=== PATIENT | male | born 1960 ===

== ENCOUNTER 2018-03-25 21:26 | Emergency (ER) | payer BC ==
--- NOTE | 2018-03-25 21:29 | C.PDOC ---
History Of Present Illness 57 year old male presents to the emergency department complaining of shortness of breath. Patient reports that he has been drinking all day. Speaking in 2-3 word sentences. No f/c/n/v. No chest pain or palpitations Time Seen by Provider: 03/25/18 21:28 History Per: Patient History/Exam Limitations: no limitations Onset/Duration Of Symptoms: Hrs Current Symptoms Are (Timing): Still Present Initiating Event: Other Quality: Other (shortness of breath) Exacerbating Factor(s): Coughing Current Respiratory Medications: See Home Med List Severity: Severe Pain Scale Rating Of: 7 Associated Symptoms: denies: Fever, Chills, Productive Cough Recent travel outside of the [place]: No Past Medical History Reviewed: Historical Data, Nursing Documentation, Vital Signs Vital Signs: Last Vital Signs Temp 98.1 F 03/26/18 03:03 Pulse 98 H 03/26/18 03:03 Resp 16 03/26/18 03:03 BP 111/74 03/26/18 03:03 Pulse Ox 94 L 03/26/18 03:03 - Medical History PMH: No Chronic Diseases Surgical History: No Surg Hx Family History: States: No Known Family Hx - Social History Hx Alcohol Use: Yes Review Of Systems Constitutional: Negative for: Fever, Chills Cardiovascular: Negative for: Chest Pain Respiratory: Positive for: Shortness of Breath, Wheezing Gastrointestinal: Negative for: Nausea, Vomiting, Abdominal Pain Genitourinary: Negative for: Dysuria Musculoskeletal: Negative for: Back Pain Skin: Negative for: Rash Neurological: Negative for: Weakness Psych: Positive for: Anxiety Physical Exam - Physical Exam Appears: In Acute Distress Skin: Warm, Dry Head: Normacephalic Eye(s): bilateral: Normal Inspection Oral Mucosa: Moist Throat: No Erythema, No Exudate Neck: Trachea Midline, Supple Chest: Symmetrical, No Tenderness Cardiovascular: Rhythm Regular, No Murmur Respiratory: Decreased Breath Sounds, No Rales, Rhonchi (few at bases), Wheezing (bilateral) Gastrointestinal/Abdominal: Soft, No Tenderness, No Guarding, No Rebound Back: Normal Inspection Extremity: No Tenderness Extremity: Bilateral: Atraumatic Pulses: Left Dorsalis Pedis: Normal, Right Dorsalis Pedis: Normal Neurological/Psych: Oriented x3, Normal Speech, Normal Cognition Gait: Unsteady ED Course And Treatment - Laboratory Results Result Diagrams: 03/25/18 21:39 03/25/18 21:39 ECG: Interpreted By Me, Viewed By Me ECG Rhythm: Sinus Rhythm (101), Nonspecific Changes O2 Sat by Pulse Oximetry: 94 Pulse Ox Interpretation: Normal - Radiology CXR: Interpreted by Me, Viewed By Me CXR Interpretation: Yes: Other (fibrotic changes). No: Infiltrates, Fracture, Pnemothorax - CT Scan/US Chest Other Rad Studies (CT/US): Read By Radiologist, Radiology Report Reviewed CT/US Interpretation: IMPRESSION: Bilateral upper lobe infiltrates. Moderate bilateral cystic bronchiectasis. Moderate emphysema. Fatty liver. Right upper lobe and right middle lobe subsegmental atelectasis. Progress Note: Plan: ABG. EKG. CMP. Drug Screen. Magnesium. CBC. CXR One View. Duoneb 3ml IH. Solu-Medrol 125mg IVP. NaCl IV Fluids. Nebulizer Treatment. Urinalysis Reevaluation Time: 04:39 Reassessment Condition: Improved Critical Care Time - Critical Care Note Total Time (in mins): 30 Documented critical care: time excludes all time spent performing seperately billable procedures. Disposition Doctor Will See Patient In The: ED Counseled Patient/Family Regarding: Studies Performed, Diagnosis, Need For Followup, Rx Given - Disposition Referrals: [facility] [Outside] [facility] [Outside] Disposition: HOME/ ROUTINE Disposition Time: 21:29 Condition: FAIR Additional Instructions: Please return if symptoms recur Prescriptions: Albuterol HFA [Ventolin HFA 90 mcg/actuation (8 g)] 2 puff IH [id number] #1 puff Azithromycin [Zithromax Tri-Eyal] 500 mg PO DAILY #3 tablet Prednisone [Deltasone] 20 mg PO DAILY #5 tablet Instructions: Exacerbation of COPD (DC), Alcohol Abuse and Alcoholism (DC) Print Language: GABONESE - Clinical Impression Clinical Impression: COPD with exacerbation, Alcohol intoxication - Scribe Statement The provider has reviewed the documentation as recorded by the Scribe (Delfino Allen) Provider Attestation: All medical record entries made by the Scribe were at my direction and personally dictated by me. I have reviewed the chart and agree that the record accurately reflects my personal performance of the history, physical exam, medical decision making, and the department course for this patient. I have also personally directed, reviewed, and agree with the discharge instructions and disposition.
[2018-03-25] MEDS ORDERED: Sodium Chloride 0.9% 1,000 ML IV ONE (21:33)
[2018-03-25 21:44] LABS: BASO % 0.2 % (0.0-2.0); EOS # 0.2 K/uL (0.0-0.7); EOS % 2.8 % (0.0-4.0); HEMOGLOBIN 15.7 g/dL (12.0-18.0); LYMPH # 1.9 K/uL (1.0-4.3); LYMPH % 32.2 % (20.0-40.0); MEAN CELL VOLUME 96.4 fL (80.0-94.0); MEAN CORPUSCULAR HEMOGLOBIN 32.4 pg (27.0-31.0); MEAN CORPUSCULAR HGB CONC 33.7 g/dL (33.0-37.0); MEAN PLATELET VOLUME 7.2 fL (7.2-11.7); MONO # 0.9 K/uL (0.0-0.8); MONO % 15.2 % (0.0-10.0); NEUT # 2.9 K/uL (1.8-7.0); NEUT % 49.6 % (50.0-75.0); NRBC % 0.5 % (0.0-2.0); RBC 4.85 Mil/uL (4.40-5.90); RED CELL DISTRIBUTION WIDTH 20.5 % (11.5-14.5); WHITE BLOOD COUNT 5.8 K/uL (4.8-10.8)
[2018-03-25] MEDS ORDERED: Albuterol-Ipratrop 3 mg / 0.5 (3 ml) UD ONE (21:52)
[2018-03-25] MEDS ORDERED: Sodium Chloride 0.9% 1,000 ML ONE (21:53)
[2018-03-25 21:56] LABS: ALB/GLOB RATIO 1.1 (1.0-2.1); ALBUMIN 4.2 g/dL (3.5-5.0); ALT/SGPT 64 U/L (21-72); AST/SGOT 86 U/L (17-59); BLOOD UREA NITROGEN 6 mg/dL (9-20); CALCIUM 8.4 mg/dl (8.6-10.4); GFR AFRICAN-AMERICAN > 60; GFR NON-AFRICAN AMERICAN > 60
[2018-03-25 22:08] LABS: ABG ALLEN TEST P; ARTERIAL BLOOD GAS HCO3 28.5 mmol/L (21-28); ARTERIAL BLOOD GAS O2 SAT 99.1 % (95-98); ARTERIAL BLOOD GAS PCO2 54 mm/Hg (35-45); ARTERIAL BLOOD GAS PH 7.37 (7.35-7.45); ARTERIAL BLOOD GAS PO2 128 mm/Hg (80-100); ARTERIAL BLOOD GAS TCO2 32.9 mmol/L (22-28)
[2018-03-25] MEDS: Albuterol-Ipratrop 3 mg / 0.5 (3 ml) UD IH SCH (22:09)
[2018-03-25] MEDS ORDERED: Piperacillin/Tazobact 3.375 GM in Sodium Chloride 100 ML IVPB STA (23:10)
[2018-03-25 23:40] LABS: URINE BILIRUBIN NEGATIVE (NEGATIVE); URINE BLOOD NEGATIVE (NEGATIVE); URINE CLARITY Clear (Clear); URINE COLOR Yellow (YELLOW); URINE GLUCOSE (UA) NORMAL (Normal); URINE LEUKOCYTE ESTERASE NEG Leu/uL (Negative); URINE PROTEIN NEGATIVE (NEGATIVE); URINE UROBILINOGEN NORMAL mg/dL (0.2-1.0)
[2018-03-25] MEDS ORDERED: Piperacillin/Tazobact 3.375 gm 100 ML IVPB ONE (23:45)
[2018-03-25 23:53] LABS: BARBITURATES, UR NEGATIVE (NEGATIVE); BENZODIAZEPINES, UR NEGATIVE (NEGATIVE); OPIATES, UR NEGATIVE (NEGATIVE); PHENCYCLIDINE, UR NEGATIVE (NEGATIVE)
[2018-03-26 03:07] VITALS: RESP 16
[2018-03-26] MEDS ORDERED: Albuterol-Ipratrop 3 mg / 0.5 (3 ml) UD ONE (05:11)
[2018-03-26] MEDS ORDERED: Albuterol-Ipratrop 3 mg / 0.5 (3 ml) UD INH STA (05:11)
[2018-03-26 06:14] VITALS: BP 105/75; PULSE 78; TEMP 98.7; O2SAT 96
--- NOTE | 2018-03-26 09:20 | CT ---
Date of service: 03/25/2018 PROCEDURE: CT Chest without contrast HISTORY: cough, COMPARISON: None. TECHNIQUE: Contiguous axial images were obtained through the chest without intravenous contrast enhancement. Sagittal and coronal reconstructions were performed. Radiation dose (DLP): 263.05 mGy-cm. This CT exam was performed using one or more of the following dose reduction techniques: Automated exposure control, adjustment of the mA and/or kV according to patient size, and/or use of iterative reconstruction technique. FINDINGS: LUNGS: There are moderate to severe emphysematous changes. There are large bulla noted at the mid and lower lungs. There is moderate to severe bilateral cystic and cylindrical bronchiectasis more prominent at the right lower lobe. Focal consolidation at the right middle lobe measures 3.3 centimeter in the largest AP diameter and 2 centimeter in the transverse diameter may represent a pneumonia or neoplasm. There is 8 millimeter ground-glass nodule at the right upper lobe image 42 series 3. There are adjacent small nodular opacity in the right upper lobe. MEDIASTINUM: The thoracic aorta is ectatic and tortuous. Normal sized heart. Main pulmonary artery is mildly enlarged. No evidence of significant mediastinal lymphadenopathy. PLEURA: No pleural fluid. No pneumothorax. BONES: No fracture. No destructive lesion. UPPER ABDOMEN: Fatty liver infiltration is noted. OTHER FINDINGS: None. IMPRESSION: Moderate to severe emphysema. Moderate to mildly severe diffuse bronchiectasis. 3.4 x 2 centimeter consolidation at the right middle lobe may represent a pneumonia or neoplasm. Interval follow-up reassessment is recommended. Preliminary report was submitted by virtual Radiology.
--- NOTE | 2018-03-26 12:07 | RAD ---
Date of service: 03/25/2018 PROCEDURE: CHEST RADIOGRAPH, 1 VIEW HISTORY: SOB COMPARISON: Comparison is made with the previous study dated 02/14/2011 FINDINGS: LUNGS: Interval appearance of focal opacity at the mid to lower right lung since the previous study. Moderate emphysematous changes are again noted. PLEURA: No pneumothorax or pleural fluid seen. CARDIOVASCULAR: Normal. OSSEOUS STRUCTURES: No significant abnormalities. VISUALIZED UPPER ABDOMEN: Normal. OTHER FINDINGS: None. IMPRESSION: New focal opacity at the mid to lower right lung may represent pneumonia or neoplasm. Moderate emphysema.
--- NOTE | 2018-03-28 14:37 | CARD ---
APPROVED REPORT Date of service: 03/25/2018 EKG Measurement Heart [id number] <Conclusion> Sinus tachycardia Right axis deviation Abnormal ECG
== END 2018-03-26 05:45 | disposition home or self-care (01) ==
LOC: EDBD 21:26 → C.ER 21:26
DX: J44.1 Chronic obstructive pulmonary disease with (acute) exacerbation (principal); F10.129 Alcohol abuse with intoxication, unspecified; Y90.8 Blood alcohol level of 240 mg/100 ml or more
CPT/HCPCS: 71045; 71250; 80053; 81001; 82803; 83735; 85025; 93005; 94640; 96365; 96375; 99284; G0480; J2543; J2930; J7030; J7050

== ENCOUNTER 2018-04-13 10:12 | Inpatient (IN) | payer BC ==
--- NOTE | 2018-04-13 10:52 | C.PDOC ---
History Of Present Illness 58-year-old male with a past medical history of COPD and alcohol abuse presents to the ED requesting detox from alcohol. Patient is also complaining of shortness of breath for "some time now", but worse since this morning. Last drink was yesterday. On arrival, patient also reports sweats and feels shaky. Otherwise he denies any fever, cough, congestion, abdominal pain, vomiting, or other associated symptoms. On arrival, O2 sat is 89% on room air. Time Seen by Provider: 04/13/18 10:36 Chief Complaint (Nursing): Substance Abuse History Per: Patient History/Exam Limitations: no limitations Onset/Duration Of Symptoms: Days Current Symptoms Are (Timing): Still Present Associated Symptoms: Other (withdrawal). denies: Suicidal Thoughts Involuntary Hold By: None Past Medical History Reviewed: Historical Data, Nursing Documentation, Vital Signs Vital Signs: Last Vital Signs Temp 98.7 F 04/13/18 15:08 Pulse 100 H 04/13/18 15:08 Resp 22 04/13/18 15:08 BP 113/78 04/13/18 15:08 Pulse Ox 92 L 04/13/18 15:08 - Medical History PMH: COPD, Hepatitis (C), HIV Surgical History: No Surg Hx Family History: States: No Known Family Hx - Social History Hx Tobacco Use: No (former) Hx Alcohol Use: Yes (daily) Hx Substance Use: No - Immunization History Hx Tetanus Toxoid Vaccination: Yes Hx Influenza Vaccination: No Hx Pneumococcal Vaccination: Yes Review Of Systems Except As Marked, All Systems Reviewed And Found Negative. Constitutional: Positive for: Sweats. Negative for: Fever, Chills ENT: Negative for: Nose Congestion Cardiovascular: Negative for: Chest Pain Respiratory: Positive for: Shortness of Breath. Negative for: Cough, Sputum Gastrointestinal: Negative for: Nausea, Vomiting, Abdominal Pain Musculoskeletal: Positive for: Other (Tremors) Neurological: Negative for: Weakness, Numbness Psych: Positive for: Withdrawal. Negative for: Suicidal ideation Physical Exam - Physical Exam Appears: Non-toxic, No Acute Distress Skin: Warm, Dry, No Rash Head: Atraumatic, Normacephalic Eye(s): bilateral: Normal Inspection Nose: Normal, No Flaring Oral Mucosa: Moist Neck: Normal ROM Chest: Symmetrical Cardiovascular: Rhythm Regular, No Murmur Respiratory: No Accessory Muscle Use, No Rales, Rhonchi (scattered), No Stridor , Wheezing Gastrointestinal/Abdominal: Soft, No Tenderness, No Distention Back: Normal Inspection Extremity: No Pedal Edema Extremity: Bilateral: Atraumatic, Normal Color And Temperature, Other (Mild tremors noted) Pulses: Left Radial: Normal, Right Radial: Normal Neurological/Psych: Oriented x3, Normal Speech Gait: Steady ED Course And Treatment - Laboratory Results Result Diagrams: 04/13/18 10:51 04/13/18 10:51 ECG: Interpreted By Me (and ED attending Dr. Main) ECG Rhythm: Sinus Tachycardia ECG Interpretation: No Acute Changes (from 03/25/18) Interpretation Of ECG: Sinus tach at 103 bpm, with right axis deviation and T wave abnormality Rate From EC O2 Sat by Pulse Oximetry: 93 (nasal cannula) Pulse Ox Interpretation: Abnormal - Other Rad CXR X-Ray: Read By Radiologist Interpretation: FINDINGS: LUNGS: Bilateral hyperaeration bullous emphysematous changes present and similar appearing. The linear opacity lateral right mid lung zone less conspicuous. No dense consolidation seen. Bilateral nettie pelvic trace diaphragmatic pleural tenting as before. PLEURA: As above. No pneumothorax. No kendal pleural effusion. CARDIOVASCULAR: Normal. OSSEOUS STRUCTURES: No significant abnormalities. VISUALIZED UPPER ABDOMEN: Normal. OTHER FINDINGS: None. IMPRESSION: Background COPD and prominent bibasilar bullous emphysematous changes. No complicating gross pneumothorax appreciated. No definite interval pathology appreciated. Prior opacity noted previously in the right mid to lower lung zone less dense less conspicuous. Some residual discoid atelectasis and scarring here probable. Medical Decision Making Medical Decision Making: Impression: Alcohol detox, Shortness of breath Initial Plan: --EKG --CMP --Urine drug screen --Alcohol serum --CBC --Chest X-Ray --Urinalysis --Duoneb x1 --Peak flow pre/post neb --Librium 100 mg PO --SOLU-Medrol 125 mg IVP --Crisis evaluation Progress/Updates: Labs and CXR reviewed, and discussed with ER attending Dr Main. 2:30pm Spoke with bilingual social worker, who requests patient be admitted medically with psych consult. Case discussed with Dr. Real, who accepts the patient for admission for COPD exacerbation and alcohol withdrawal. Disposition Discussed With : Vielka Real Counseled Patient/Family Regarding: Studies Performed, Diagnosis - Disposition Disposition: HOSPITALIZED Disposition Time: 14:30 Condition: STABLE - Clinical Impression Clinical Impression: COPD with exacerbation, Alcohol withdrawal - PA / MAILING SPECIALIST / Resident Statement MD/DO has reviewed & agrees with the documentation as recorded. - Scribe Statement The provider has reviewed the documentation as recorded by the Scribe (Lakeshia Justice) All medical record entries made by the Scribe were at my direction and personally dictated by me. I have reviewed the chart and agree that the record accurately reflects my personal performance of the history, physical exam, medical decision making, and the department course for this patient. I have also personally directed, reviewed, and agree with the discharge instructions and disposition. Decision To Admit - Pt Status Changed To: Hospital Disposition Of: Inpatient - Admit Certification Admit to Inpatient:: After my assessment, the patient will require hospitalization for at least two midnights. This is because of the severity of symptoms shown, intensity of services needed, and/or the medical risk in this patient being treated as an outpatient. - InPatient: Physician Admission Certification: I certify that this patient requires 2 or more midnights of care for the following reason:: Patient with history of COPD and acute exacerbation as well as alcohol abuse and symptoms of withdrawal. Patient will benefit from inpatient care and treatment of these problems - . Bed Request Type: Telemetry Admitting Physician: Vielka Real Patient Diagnosis: COPD with exacerbation, Alcohol withdrawal
[2018-04-13 10:54] LABS: BASO % 0.3 % (0.0-2.0); EOS # 0.1 K/uL (0.0-0.7); EOS % 1.1 % (0.0-4.0); HEMOGLOBIN 15.8 g/dL (12.0-18.0); LYMPH # 0.6 K/uL (1.0-4.3); LYMPH % 10.4 % (20.0-40.0); MEAN CORPUSCULAR HEMOGLOBIN 35.1 pg (27.0-31.0); MEAN CORPUSCULAR HGB CONC 33.7 g/dL (33.0-37.0); MEAN PLATELET VOLUME 7.8 fL (7.2-11.7); MONO # 0.7 K/uL (0.0-0.8); MONO % 13.8 % (0.0-10.0); NEUT % 74.4 % (50.0-75.0); NRBC % 0.1 % (0.0-2.0); RBC 4.48 Mil/uL (4.40-5.90); RED CELL DISTRIBUTION WIDTH 19.9 % (11.5-14.5); WHITE BLOOD COUNT 5.4 K/uL (4.8-10.8)
[2018-04-13] MEDS: Albuterol-Ipratrop 3 mg / 0.5 (3 ml) UD IH SCH ×3 (11:00→11:40)
[2018-04-13 11:03] LABS: MEAN CELL VOLUME 104.1 fL (80.0-94.0)
[2018-04-13 11:12] LABS: ALB/GLOB RATIO 1.2 (1.0-2.1); ALT/SGPT 53 U/L (21-72); AST/SGOT 56 U/L (17-59); BLOOD UREA NITROGEN 8 mg/dL (9-20); CALCIUM 8.8 mg/dl (8.6-10.4); GFR AFRICAN-AMERICAN > 60; GFR NON-AFRICAN AMERICAN > 60
[2018-04-13] MEDS ORDERED: Albuterol-Ipratrop 3 mg / 0.5 (3 ml) UD ONE (11:13)
[2018-04-13] MEDS ORDERED: Magnesium Sulfate 1 gm in D5W 1 GM/100 ML BAG IV ONE (12:15)
[2018-04-13] MEDS ORDERED: Magnesium Sulfate 1 gm in D5W 1 GM/100 ML BAG IVPB ONE (12:24)
--- NOTE | 2018-04-13 12:41 | RAD ---
Date of service: 04/13/2018 HISTORY: Detox/Psy COMPARISON: 03/25/2018 TECHNIQUE: Chest PA and lateral FINDINGS: LUNGS: Bilateral hyperaeration bullous emphysematous changes present and similar appearing The linear opacity lateral right mid lung zone less conspicuous. No dense consolidation seen. Bilateral nettie pelvic trace diaphragmatic pleural tenting as before. PLEURA: As above. No pneumothorax. No kendal pleural effusion. CARDIOVASCULAR: Normal. OSSEOUS STRUCTURES: No significant abnormalities. VISUALIZED UPPER ABDOMEN: Normal. OTHER FINDINGS: None. IMPRESSION: Background COPD and prominent bibasilar bullous emphysematous changes. No complicating gross pneumothorax appreciated. No definite interval pathology appreciated. Prior opacity noted previously in the right mid to lower lung zone less dense less conspicuous. Some residual discoid atelectasis and scarring here probable.
[2018-04-13 13:54] LABS: SQUAMOUS EPITHIAL 5 /hpf (0-5); URINE BILIRUBIN NEGATIVE (NEGATIVE); URINE BLOOD NEGATIVE (NEGATIVE); URINE CLARITY Clear (Clear); URINE COLOR Yellow (YELLOW); URINE GLUCOSE (UA) NORMAL (Normal); URINE LEUKOCYTE ESTERASE NEG Leu/uL (Negative); URINE PROTEIN NEGATIVE (NEGATIVE); URINE UROBILINOGEN NORMAL mg/dL (0.2-1.0)
[2018-04-13 14:18] LABS: BARBITURATES, UR NEGATIVE (NEGATIVE); BENZODIAZEPINES, UR NEGATIVE (NEGATIVE); OPIATES, UR NEGATIVE (NEGATIVE); PHENCYCLIDINE, UR NEGATIVE (NEGATIVE)
--- NOTE | 2018-04-13 15:17 | CP.PCM.HP ---
<Carl Mckenzie - Last Filed: 04/13/18 16:22> History of Present Illness - History of Present Illness History of Present Illness: H&P for Medical Team This is a 58 year old gentleman with a pmhx of COPD, HIV, Hep C (untreated), and alcohol abuse presenting with acutely worsening shortness of breath. He is a patient of José Sloan, who sent the patient in for labs. He presented at [facility] today to have labs done and was directed to come to the ED because he was short of breath. The patient states that he is "always" short of breath and this is not new for him. He was recently diagnosed with PNA and given azithromycin/prednisone from [facility] ED. He states that he finished these and went to his PCP, who placed him on Augmentin/prednisone which he is still taking at home. He denies any fever or chills. He has a minor, lingering cough that was productive weeks ago but is now dry. PCP: José Sloan? PMHx: COPD, HIV, Hep C (untreated), and alcohol abuse PSHx: Osteotomy of right ear >10years, right inguinal hernia repair >10yrs Meds: [facility] [place] 1T PO QD, Augmentin 875/125mg 1T PO q12hrs [id number] (recently added by PCP) Allergies: NKDA Family Hx: strong hx of alcoholism in multiple members Social Hx: Alcohol abuse for >30 years- currently drinks 4x 24oz cans of beer and 1pt vodka per day. Former smoker- >10 pack year hx- quit 4 years ago. No drugs. Full Code Proxy: Paige Joseph (ex-) [phone] Present on Admission - Present on Admission Any Indicators Present on Admission: No Review of Systems - Constitutional Constitutional: absent: Chills, Fever - EENT Eyes: absent: Blurred Vision Nose/Mouth/Throat: absent: Nasal Congestion, Dysphagia, Sore Throat, Neck Pain - Cardiovascular Cardiovascular: absent: Chest Pain, Chest Pain at Rest - Respiratory Respiratory: As Per HPI, Cough (non-productive), Dyspnea - Gastrointestinal Gastrointestinal: absent: Diarrhea, Nausea, Vomiting - Neurological Neurological: Tremor. absent: Dizziness, Numbness, Focal Weakness, Syncope Past Patient History - Past Social History Smoking Status: Former Smoker - CARDIAC Hx Cardiac Disorders: No Hx Hypertension: No - PULMONARY Hx Chronic Obstructive Pulmonary Disease (COPD): Yes - NEUROLOGICAL HX Cerebrovascular Accident: No Hx Seizures: No - HEMATOLOGICAL/ONCOLOGICAL Hx Human Immunodeficiency Virus (HIV): Yes - GENITOURINARY/GYNECOLOGICAL Hx Sexually Transmitted Disorders: Yes - PSYCHIATRIC Hx Substance Use: No - SURGICAL HISTORY Hx Surgeries: No - ANESTHESIA Hx Anesthesia: No Meds Allergies/Adverse Reactions: Allergies Allergy/AdvReac Type Severity Reaction Status Date / Time No Known Allergies Allergy Verified 04/13/18 10:20 Physical Exam - Constitutional Appears: No Acute Distress - Head Exam Head Exam: ATRAUMATIC, NORMAL INSPECTION - Eye Exam Eye Exam: EOMI, Normal appearance - ENT Exam ENT Exam: Mucous Membranes Moist - Respiratory Exam Respiratory Exam: Decreased Breath Sounds, Wheezes. absent: Respiratory Distress Additional comments: coarse breath sound RLL- minor - Cardiovascular Exam Cardiovascular Exam: Tachycardia (mild), REGULAR RHYTHM, +S1, +S2 - GI/Abdominal Exam GI & Abdominal Exam: Normal Bowel Sounds, Soft. absent: Tenderness - Extremities Exam Extremities exam: Negative for: pedal edema - Neurological Exam Neurological exam: Alert, Oriented x3 Additional comments: visible DT in hands, legs and tongue on exam - Psychiatric Exam Psychiatric exam: Normal Affect, Normal Mood - Skin Skin Exam: Dry, Warm Results - Vital Signs Recent Vital Signs: Last Vital Signs Temp 98.7 F 04/13/18 15:08 Pulse 100 H 04/13/18 15:08 Resp 22 04/13/18 15:08 BP 113/78 04/13/18 15:08 Pulse Ox 92 L 04/13/18 15:08 - Labs Result Diagrams: 04/13/18 10:51 04/13/18 10:51 Labs: Laboratory Results - last 24 hr 04/13/18 04/13/18 04/13/18 10:51 10:51 13:36 WBC 5.4 RBC 4.48 Hgb 15.8 Hct 46.7 MCV 104.1 H D MCH 35.1 H MCHC 33.7 RDW 19.9 H Plt Count 128 L MPV 7.8 Neut % (Auto) 74.4 Lymph % (Auto) 10.4 L Mccone % (Auto) 13.8 H Eos % (Auto) 1.1 Baso % (Auto) 0.3 Neut # (Auto) 4.0 Lymph # (Auto) 0.6 L Mccone # (Auto) 0.7 Eos # (Auto) 0.1 Baso # (Auto) 0.0 Differential Comment Sodium 143 Potassium 4.0 Chloride 100 Carbon Dioxide 31 H Anion Gap 15 BUN 8 L Creatinine 0.7 L Est GFR ( Amer) > 60 Est GFR (Non-Af Amer) > 60 Random Glucose 140 H Calcium 8.8 Total Bilirubin 0.6 AST 56 ALT 53 Alkaline Phosphatase 90 Total Protein 7.3 Albumin 4.0 Globulin 3.3 Albumin/Globulin Ratio 1.2 Urine Color Yellow Urine Clarity Clear Urine pH 5.0 Ur Specific [place] 1.014 Urine Protein Negative Urine Glucose (UA) Normal Urine Ketones Negative Urine Blood Negative Urine Nitrate Negative Urine Bilirubin Negative Urine Urobilinogen Normal Ur Leukocyte Esterase Neg Urine WBC (Auto) 1 Urine RBC (Auto) < 1 Ur Squamous Epith Cells 5 Urine Opiates Screen Urine Methadone Screen Ur Barbiturates Screen Ur Phencyclidine Scrn Ur Amphetamines Screen U Benzodiazepines Scrn U Oth Cocaine Metabols U Cannabinoids Screen Alcohol, Quantitative < 10 04/13/18 13:36 WBC RBC Hgb Hct MCV MCH MCHC RDW Plt Count MPV Neut % (Auto) Lymph % (Auto) Mccone % (Auto) Eos % (Auto) Baso % (Auto) Neut # (Auto) Lymph # (Auto) Mccone # (Auto) Eos # (Auto) Baso # (Auto) Differential Comment Sodium Potassium Chloride Carbon Dioxide Anion Gap BUN Creatinine Est GFR ( Amer) Est GFR (Non-Af Amer) Random Glucose Calcium Total Bilirubin AST ALT Alkaline Phosphatase Total Protein Albumin Globulin Albumin/Globulin Ratio Urine Color Urine Clarity Urine pH Ur Specific [place] Urine Protein Urine Glucose (UA) Urine Ketones Urine Blood Urine Nitrate Urine Bilirubin Urine Urobilinogen Ur Leukocyte Esterase Urine WBC (Auto) Urine RBC (Auto) Ur Squamous Epith Cells Urine Opiates Screen Negative Urine Methadone Screen Negative Ur Barbiturates Screen Negative Ur Phencyclidine Scrn Negative Ur Amphetamines Screen Negative U Benzodiazepines Scrn Negative U Oth Cocaine Metabols Negative U Cannabinoids Screen Negative Alcohol, Quantitative Assessment & Plan - Assessment and Plan (Free Text) Plan: COPD exacerbation Possible PNA CXR 02/2018 RLL/RML opacity neoplasm vs PNA CT chest 02/2018 3.4cm x 2cm RML PNA vs neoplasm; emphysema, bronchiectasis CXR 03/2018 improved RML opacity; COPD-emphysema Start Rocephin 1g IV q12hrs, Azithro 500mg IV QD Duonebs q6hrs prn Spiriva QD Advair 250/50 1P INH BID Solumedrol 40mg IV q6hrs F/u labs- s. pneumo, legionella, mycoplasma Alcohol W/D CIWA protocol Librium Taper Ativan PRN F/U- B12, Folate HIV Patient's home med is Genvoya- non-formulary Patient will have home meds brought in by friend/family Hep C - untreated Patient unsure of diagnosis F/U hep panel Prophylaxis Protonix 40mg PO QD SCD Regular Diet Full code Proxy as per HPI Case discussed with Dr. Rodriguez <Adrián Rodriguez - Last Filed: 04/13/18 17:09> Results - Vital Signs Recent Vital Signs: Last Vital Signs Temp 98.7 F 04/13/18 15:08 Pulse 101 H 04/13/18 15:58 Resp 20 04/13/18 15:58 BP 121/71 04/13/18 15:58 Pulse Ox 90 L 04/13/18 15:58 - Labs Result Diagrams: 04/13/18 10:51 04/13/18 10:51 Labs: Laboratory Results - last 24 hr 04/13/18 04/13/18 04/13/18 10:51 10:51 13:36 WBC 5.4 RBC 4.48 Hgb 15.8 Hct 46.7 MCV 104.1 H D MCH 35.1 H MCHC 33.7 RDW 19.9 H Plt Count 128 L MPV 7.8 Neut % (Auto) 74.4 Lymph % (Auto) 10.4 L Mccone % (Auto) 13.8 H Eos % (Auto) 1.1 Baso % (Auto) 0.3 Neut # (Auto) 4.0 Lymph # (Auto) 0.6 L Mccone # (Auto) 0.7 Eos # (Auto) 0.1 Baso # (Auto) 0.0 Differential Comment Sodium 143 Potassium 4.0 Chloride 100 Carbon Dioxide 31 H Anion Gap 15 BUN 8 L Creatinine 0.7 L Est GFR ( Amer) > 60 Est GFR (Non-Af Amer) > 60 Random Glucose 140 H Calcium 8.8 Total Bilirubin 0.6 AST 56 ALT 53 Alkaline Phosphatase 90 Total Protein 7.3 Albumin 4.0 Globulin 3.3 Albumin/Globulin Ratio 1.2 Urine Color Yellow Urine Clarity Clear Urine pH 5.0 Ur Specific [place] 1.014 Urine Protein Negative Urine Glucose (UA) Normal Urine Ketones Negative Urine Blood Negative Urine Nitrate Negative Urine Bilirubin Negative Urine Urobilinogen Normal Ur Leukocyte Esterase Neg Urine WBC (Auto) 1 Urine RBC (Auto) < 1 Ur Squamous Epith Cells 5 Urine Opiates Screen Urine Methadone Screen Ur Barbiturates Screen Ur Phencyclidine Scrn Ur Amphetamines Screen U Benzodiazepines Scrn U Oth Cocaine Metabols U Cannabinoids Screen Alcohol, Quantitative < 10 04/13/18 13:36 WBC RBC Hgb Hct MCV MCH MCHC RDW Plt Count MPV Neut % (Auto) Lymph % (Auto) Mccone % (Auto) Eos % (Auto) Baso % (Auto) Neut # (Auto) Lymph # (Auto) Mccone # (Auto) Eos # (Auto) Baso # (Auto) Differential Comment Sodium Potassium Chloride Carbon Dioxide Anion Gap BUN Creatinine Est GFR ( Amer) Est GFR (Non-Af Amer) Random Glucose Calcium Total Bilirubin AST ALT Alkaline Phosphatase Total Protein Albumin Globulin Albumin/Globulin Ratio Urine Color Urine Clarity Urine pH Ur Specific [place] Urine Protein Urine Glucose (UA) Urine Ketones Urine Blood Urine Nitrate Urine Bilirubin Urine Urobilinogen Ur Leukocyte Esterase Urine WBC (Auto) Urine RBC (Auto) Ur Squamous Epith Cells Urine Opiates Screen Negative Urine Methadone Screen Negative Ur Barbiturates Screen Negative Ur Phencyclidine Scrn Negative Ur Amphetamines Screen Negative U Benzodiazepines Scrn Negative U Oth Cocaine Metabols Negative U Cannabinoids Screen Negative Alcohol, Quantitative Attending/Attestation - Attestation I have personally seen and examined this patient.: Yes I have fully participated in the care of the patient.: Yes I have reviewed all pertinent clinical information: Yes Notes (Text): 04/13/18 17:05 Medical attending: Patient was seen and examined by me. Agree with the above note by the resident The patient was seen with the resident in ER bed #9 He was not in any acute distress, he was able to speak in full sentences. On exam there are notable tremors. He will need to be placed on a tapering librium protocol as well as IV ativan PRN With the Librium and ativan this does decrease his respiratory drive however for this short period he probably will be ok. With reguards to his COPD we will add IV solumedrol, advair, and also spiriva He does have HIV and his medications are not on formulary here so we said to him to notify his family to bring these in so he can continue taking them He will be on Azithromycin and Rocpehin IV in case there is PNA. The CXRAY in the ER today as well as several days ago suggest maybe a procccess in the RLL. For now will hold off on doing a large HIV work up as he is already on medications and also because he is here more for the alcohol withdrawl. thank you Adrián Rodriguez
[2018-04-13] MEDS ORDERED: Azithromycin 500 MG in Sodium Chloride 0.9% 250 ML IVPB SCH (16:00)
[2018-04-13] MEDS: Azithromycin 500 MG in Sodium Chloride 0.9% 250 ML IVPB SCH (18:32)
[2018-04-13 21:05] LABS: LEGIONELLA AG URINE NEGATIVE (NEGATIVE)
[2018-04-13 21:26] LABS: MYCOPLASMA PNEUMONIAE IGM NEGATIVE (NEGATIVE)
[2018-04-13] MEDS: Fluticasone-Salmeterol 250-50mcg Diskus INH SCH (22:18)
[2018-04-14 06:15] LABS: BASO % 0.2 % (0.0-2.0); EOS % 0.1 % (0.0-4.0); HEMOGLOBIN 14.8 g/dL (12.0-18.0); LYMPH # 0.2 K/uL (1.0-4.3); LYMPH % 3.9 % (20.0-40.0); MEAN CELL VOLUME 106.1 fL (80.0-94.0); MEAN CORPUSCULAR HEMOGLOBIN 34.9 pg (27.0-31.0); MEAN CORPUSCULAR HGB CONC 32.9 g/dL (33.0-37.0); MEAN PLATELET VOLUME 8.7 fL (7.2-11.7); MONO # 0.2 K/uL (0.0-0.8); NEUT # 4.4 K/uL (1.8-7.0); NEUT % 91.8 % (50.0-75.0); NRBC % 0.5 % (0.0-2.0); PLATELET COUNT 127 K/uL (130-400); RBC 4.25 Mil/uL (4.40-5.90); RED CELL DISTRIBUTION WIDTH 19.4 % (11.5-14.5); WHITE BLOOD COUNT 4.8 K/uL (4.8-10.8)
[2018-04-14] MEDS: Albuterol-Ipratrop 3 mg / 0.5 (3 ml) UD INH PRN ×2 (07:15→12:46)
[2018-04-14] MEDS: Fluticasone-Salmeterol 250-50mcg Diskus INH SCH ×2 (07:15→19:34)
[2018-04-14] MEDS: Tiotropium 18 mcg Cap For Inhalation INH SCH (07:15)
[2018-04-14 07:53] LABS: BANDS 1 % (0-2); LYMPHOCYTE 5 % (20-40); MONOCYTE 3 % (0-10); NEUTROPHIL 91 % (50-75); PLATELET ESTIMATE SLIGHTLY DECREASED (NORMAL); TOTAL CELLS COUNTED 100
[2018-04-14 07:54] LABS: TOXIC GRANULATION PRESENT
[2018-04-14 08:06] LABS: ALB/GLOB RATIO 1.3 (1.0-2.1); ALBUMIN 3.8 g/dL (3.5-5.0); ALT/SGPT 45 U/L (21-72); AST/SGOT 32 U/L (17-59); BLOOD UREA NITROGEN 13 mg/dL (9-20); CALCIUM 9.2 mg/dl (8.6-10.4); GFR AFRICAN-AMERICAN > 60; GFR NON-AFRICAN AMERICAN > 60
[2018-04-14 08:29] LABS: HEPATITIS B SURFACE AG Negative (NEGATIVE)
[2018-04-14 08:31] LABS: FOLATE 11.7 ng/mL
[2018-04-14 08:35] LABS: HEPATITIS A IGM NEGATIVE (NEGATIVE); HEPATITIS B CORE AB NEGATIVE (NEGATIVE)
[2018-04-14] MEDS: Pantoprazole 40 mg EC Tab PO SCH (09:28)
[2018-04-14 10:02] LABS: HEPATITIS C ANTIBODY REACTIVE (NEGATIVE)
[2018-04-14 11:16] LABS: N MENINGITIS ACY/W135 NEGATIVE (NEGATIVE); N MENINGITIS B/ECOLI K1 NEGATIVE (NEGATIVE); STREP PNEUMONIAE NEGATIVE (NEGATIVE); STREPTOCOCCUS B NEGATIVE (NEGATIVE)
--- NOTE | 2018-04-14 12:51 | PCM.PSYCH ---
Initial Psychiatric Evaluation - Initial Psychiatric Evaluation Type of Admission: Voluntary Legal Status: Capacity Chief Complaint (in patient's own words): "Alcohol" History of Present Illness and Precipitating Events: This is a 58 y/o LM, with children, retired, lives with is mother Consult was asked for his alcohol use Chart reviewed, case discussed, pt is seen He admits to drinking 5x24oz beers plus 1 pint vodka He has wdw sx when he doesn't drink but no seizures Denies drugs but he used to use cocaine until 4 years ago, and cigarette also until 4 yrs ago Started when he was 18 y/o and he had been to detox and rehabs in the past No psych hx medical: HIV, COPD, Hep C No family hx Current Medications: Active Medications Generic Name Dose Route Start Last Admin Trade Name Freq PRN Reason Stop Dose Admin Acetaminophen 650 mg 04/13/18 15:34 Tylenol 325mg Tab PO Q6 PRN Pain, moderate (4-7) Acetaminophen 650 mg 04/13/18 15:34 Tylenol 325mg Tab PO Q6 PRN Fever >100.4 F Albuterol/Ipratropium 3 ml 04/13/18 15:42 04/14/18 07:15 Duoneb 3 Mg/0.5 Mg (3 Ml) Ud INH 3 ml RQ6 PRN Administration Shortness of Breath Chlordiazepoxide 25 mg 04/13/18 18:00 04/14/18 11:19 Librium PO 04/17/18 17:59 25 mg Q6 JONI Administration Taper Ceftriaxone Sodium 1 gm/ 100 mls @ 100 mls/hr 04/13/18 19:00 04/14/18 06:00 Sodium Chloride IVPB 100 mls/hr Q12H JONI Administration Protocol Azithromycin 500 mg/ Sodium 250 mls @ 250 mls/hr 04/13/18 17:00 04/13/18 18: 32 Chloride IVPB 250 mls/hr Q24H JONI Administration Protocol Lorazepam 1 mg 04/13/18 15:52 Ativan IVP Q15MIN PRN Anxiety Ondansetron HCl 4 mg 04/13/18 15:34 Zofran Inj IVP Q6 PRN Nausea/Vomiting Pantoprazole Sodium 40 mg 04/14/18 10:00 04/14/18 09:28 Protonix Ec Tab PO 40 mg DAILY JONI Administration Fluticasone/Salmeterol 1 puff 04/13/18 20:00 04/14/18 07:15 Advair Diskus 250/50 INH 1 puff RQ12 JONI Administration Tiotropium [place] 18 mcg 04/14/18 08:00 04/14/18 07:15 Spiriva INH 18 mcg RQ24 JONI Administration Past Psychiatric History - Past Psychiatric History Previous Treatment History: None Pertinent Medical Hx (Current Medical&Sleep Prob, Allergies): Allergies Allergy/AdvReac Type Severity Reaction Status Date / Time No Known Allergies Allergy Verified 04/13/18 10:20 Albuterol HFA [Ventolin HFA 90 mcg/actuation (8 g)] 2 puff IH [id number] #1 puff Prednisone [Deltasone] 20 mg PO DAILY #5 tablet 03/26/18 Albuterol Sulfate [Ventolin Hfa] 1 puff IH Q6H PRN 04/13/18 Elviteg/Margaret/Emtric/Tenofo Dis [Stribild] 1 tab PO DAILY 04/13/18 Review of Systems - Psychiatric Psychiatric: Abnormal Sleep Pattern, Anxiety. absent: Depression, Hallucinations, Homicidal Ideation, Paranoia, Suicidal Ideation Mental Status Examination - Personal Presentation Personal Presentation: Looks stated age - Affect Affect: Constricted - Motor Activity Motor Activity: Calm - Reliability in Providing Information Reliability in Providing Information: Good - Speech Speech: Organized - Mood Mood: Anxious - Formal Thought Process Formal Thought Process: No Impairment - Cognitive Functions Orientation: Person, Place, Situation, Time Sensorium: Alert Attention/Concentration: Attentive Estimate of Intelligence: Average Judgement: Intact, as evidence by: Insight regarding need for hospitalization Memory: Recent intact, as evidence by: Ability to recall events of the day, Remote intact, as evidenced by: Abilit to recall sig. life events - Risk Risk: Withdrawal, Diminished functioning - Strength & Assets Inventory Strength & Assets Inventory: Cooperative - Limitations Limitations: Living alone DSM 5 DX - DSM 5 DSM 5 Diagnosis: Alcohol withdrawal Alcohol use d/o- severe - Recommended/Plan of Treatment Treatment Recommendations and Plan of Treatment: Taper with librium started already Gabapentin for augmentation if needed As needed medications All risks, benefits and alternatives of the meds discussed, and the pt agreed and understood. Supportive therapy and psychoeducation [place] for abstinence Refer to rehab or IOP, and self-help groups 34 min
--- NOTE | 2018-04-14 15:46 | CP.PCM.PN ---
<Pablo Hendrickson - Last Filed: 04/15/18 09:38> Subjective - Date & Time of Evaluation Date of Evaluation: 04/14/18 Time of Evaluation: 15:44 - Subjective Subjective: Medicine note for hospitalist service Pt seen and examined at bedside. Pt improved greatly overnight. Pt reports no new asthmatic symptoms. pt reports a dry cough still. Pt reports no SOB, CP f/c n/v. Objective - Vital Signs/Intake and Output Vital Signs (last 24 hours): Temp Pulse Resp BP Pulse Ox 97.8 F 88 18 114/81 94 L 04/14/18 07:00 04/14/18 07:17 04/14/18 07:00 04/14/18 07:00 04/14/18 07:00 Intake and Output: 04/14/18 04/14/18 06:59 18:59 Intake Total 300 Output Total 200 500 Balance -200 -200 - Medications Medications: Current Medications Acetaminophen (Tylenol 325mg Tab) 650 mg PO Q6 PRN PRN Reason: Pain, moderate (4-7) Acetaminophen (Tylenol 325mg Tab) 650 mg PO Q6 PRN PRN Reason: Fever >100.4 F Albuterol/Ipratropium (Duoneb 3 Mg/0.5 Mg (3 Ml) Ud) 3 ml INH RQ6 PRN PRN Reason: Shortness of Breath Last Admin: 04/14/18 12:46 Dose: 3 ml Chlordiazepoxide (Librium) 25 mg PO Q6 JONI PRN Reason: Taper Stop: 04/17/18 17:59 Last Admin: 04/14/18 11:19 Dose: 25 mg Ceftriaxone Sodium 1 gm/ (Sodium Chloride) 100 mls @ 100 mls/hr IVPB Q12H JONI PRN Reason: Protocol Last Admin: 04/14/18 06:00 Dose: 100 mls/hr Azithromycin 500 mg/ Sodium (Chloride) 250 mls @ 250 mls/hr IVPB Q24H JONI PRN Reason: Protocol Last Admin: 04/13/18 18:32 Dose: 250 mls/hr Lorazepam (Ativan) 1 mg IVP Q15MIN PRN PRN Reason: Anxiety Ondansetron HCl (Zofran Inj) 4 mg IVP Q6 PRN PRN Reason: Nausea/Vomiting Pantoprazole Sodium (Protonix Ec Tab) 40 mg PO DAILY [facility] Last Admin: 04/14/18 09:28 Dose: 40 mg Fluticasone/Salmeterol (Advair Diskus 250/50) 1 puff INH RQ12 [facility] Last Admin: 04/14/18 07:15 Dose: 1 puff Tiotropium [place] (Spiriva) 18 mcg INH RQ24 [facility] Last Admin: 04/14/18 07:15 Dose: 18 mcg - Labs Labs: 04/14/18 06:08 04/14/18 06:08 - Constitutional Appears: Well, Non-toxic, No Acute Distress - Head Exam Head Exam: ATRAUMATIC, NORMAL INSPECTION - Additional Findings Additional findings: Constitutional Appears: No Acute Distress - Head Exam Head Exam: ATRAUMATIC, NORMAL INSPECTION - Eye Exam Eye Exam: EOMI, Normal appearance - ENT Exam ENT Exam: Mucous Membranes Moist - Respiratory Exam Respiratory Exam: minor wheeze, bilateral lower lungs - Cardiovascular Exam Cardiovascular Exam: Tachycardia (mild), REGULAR RHYTHM, +S1, +S2 - GI/Abdominal Exam GI & Abdominal Exam: Normal Bowel Sounds, Soft. absent: Tenderness - Extremities Exam Extremities exam: Negative for: pedal edema - Neurological Exam Neurological exam: Alert, Oriented x3 Additional comments: visible DT in hands, legs and tongue on exam - Psychiatric Exam Psychiatric exam: Normal Affect, Normal Mood - Skin Skin Exam: Dry, Warm Assessment and Plan - Assessment and Plan (Free Text) Assessment: COPD exacerbation -Rocephin 1g IV q12hrs, Azithro 500mg IV QD -Duonebs q6hrs prn -Spiriva QD -Advair 250/50 1P INH BID -Solumedrol 40mg IV q6hrs -serology neg -7 beats of vtach, if absent tmrw likely d/c Alcohol W/D -CIWA protocol -Librium Taper -Ativan PRN -B12, Folate- normal HIV Patient's home med is Genvoya- non-formulary Patient will have home meds brought in by friend/family Hep C - untreated -Patient unsure of diagnosis -hep c reactive Prophylaxis Protonix 40mg PO QD SCD Regular Diet Full code Proxy as per HPI <Adrián Rodriguez - Last Filed: 04/16/18 08:08> Objective - Vital Signs/Intake and Output Vital Signs (last 24 hours): Temp Pulse Resp BP Pulse Ox 97.8 F 87 18 117/80 95 04/16/18 07:00 04/16/18 07:00 04/16/18 07:00 04/16/18 07:00 04/16/18 07:00 Intake and Output: 04/16/18 04/16/18 06:59 18:59 Intake Total 1410 Output Total 1300 Balance 110 - Medications Medications: Current Medications Acetaminophen (Tylenol 325mg Tab) 650 mg PO Q6 PRN PRN Reason: Pain, moderate (4-7) Acetaminophen (Tylenol 325mg Tab) 650 mg PO Q6 PRN PRN Reason: Fever >100.4 F Albuterol/Ipratropium (Duoneb 3 Mg/0.5 Mg (3 Ml) Ud) 3 ml INH RQ6 PRN PRN Reason: Shortness of Breath Last Admin: 04/14/18 12:46 Dose: 3 ml Chlordiazepoxide (Librium) 25 mg PO BID JONI PRN Reason: Taper Stop: 04/17/18 17:59 Last Admin: 04/15/18 17:34 Dose: 25 mg Ceftriaxone Sodium 1 gm/ (Sodium Chloride) 100 mls @ 100 mls/hr IVPB Q12H JONI PRN Reason: Protocol Last Admin: 04/16/18 06:43 Dose: 100 mls/hr Azithromycin 500 mg/ Sodium (Chloride) 250 mls @ 250 mls/hr IVPB Q24H JONI PRN Reason: Protocol Last Admin: 04/15/18 17:34 Dose: 250 mls/hr Lactobacillus Acidophilus (Bacid Acidophilus) 1 cap PO BID [facility] Last Admin: 04/15/18 17:34 Dose: 1 cap Lorazepam (Ativan) 1 mg IVP Q15MIN PRN PRN Reason: Anxiety Methylprednisolone (Solu-Medrol) 40 mg IVP Q8H JONI Ondansetron HCl (Zofran Inj) 4 mg IVP Q6 PRN PRN Reason: Nausea/Vomiting Pantoprazole Sodium (Protonix Ec Tab) 40 mg PO DAILY [facility] Last Admin: 04/15/18 10:06 Dose: 40 mg Fluticasone/Salmeterol (Advair Diskus 250/50) 1 puff INH RQ12 [facility] Last Admin: 04/15/18 20:51 Dose: 1 puff Tiotropium [place] (Spiriva) 18 mcg INH RQ24 [facility] Last Admin: 04/15/18 08:11 Dose: 18 mcg Trimethoprim/Sulfamethoxazole (Bactrim Ds Tab) 1 tab PO Q12H JONI PRN Reason: Protocol Last Admin: 04/16/18 02:49 Dose: 1 tab - Labs Labs: 04/15/18 06:36 04/15/18 06:36 Attending/Attestation - Attestation I have personally seen and examined this patient.: Yes I have fully participated in the care of the patient.: Yes I have reviewed all pertinent clinical information, including history, physical exam and plan: Yes Notes (Text): 04/16/18 08:07 Medical attending: Patient was seen and examined by me. Agree with the above note by the resident The patient was not in any acute distress He remains on the tapering protocol as well as medications for COPD We again had discussion with reguards to his drinking. Adrián Rodriguez
[2018-04-14] MEDS: Azithromycin 500 MG in Sodium Chloride 0.9% 250 ML IVPB SCH (17:24)
[2018-04-15 06:46] LABS: BASO % 0.2 % (0.0-2.0); EOS % 0.1 % (0.0-4.0); HEMOGLOBIN 14.8 g/dL (12.0-18.0); LYMPH % 13.3 % (20.0-40.0); MEAN CELL VOLUME 106.3 fL (80.0-94.0); MEAN CORPUSCULAR HEMOGLOBIN 34.7 pg (27.0-31.0); MEAN CORPUSCULAR HGB CONC 32.7 g/dL (33.0-37.0); MEAN PLATELET VOLUME 8.6 fL (7.2-11.7); MONO # 1.1 K/uL (0.0-0.8); MONO % 13.9 % (0.0-10.0); NEUT # 5.7 K/uL (1.8-7.0); NEUT % 72.5 % (50.0-75.0); RBC 4.26 Mil/uL (4.40-5.90); RED CELL DISTRIBUTION WIDTH 18.9 % (11.5-14.5); WHITE BLOOD COUNT 7.8 K/uL (4.8-10.8)
[2018-04-15 07:40] LABS: ALB/GLOB RATIO 1.2 (1.0-2.1); ALBUMIN 3.4 g/dL (3.5-5.0); ALT/SGPT 43 U/L (21-72); AST/SGOT 25 U/L (17-59); BLOOD UREA NITROGEN 13 mg/dL (9-20); CALCIUM 9.1 mg/dl (8.6-10.4); GFR AFRICAN-AMERICAN > 60; GFR NON-AFRICAN AMERICAN > 60
[2018-04-15] MEDS: Tiotropium 18 mcg Cap For Inhalation INH SCH (08:11)
[2018-04-15] MEDS: Fluticasone-Salmeterol 250-50mcg Diskus INH SCH ×2 (08:11→20:51)
[2018-04-15] MEDS: Pantoprazole 40 mg EC Tab PO SCH (10:06)
[2018-04-15] MEDS: Lactobacillus Acidophilus 500 MU Cap PO SCH ×2 (10:51→17:34)
[2018-04-15] MEDS: MethylPREDNISolone 40 mg Vial IVP SCH ×2 (12:46→17:34)
--- NOTE | 2018-04-15 14:30 | CP.PCM.PN ---
<Funmilayo Romano DO - Last Filed: 04/15/18 15:36> Subjective - Date & Time of Evaluation Date of Evaluation: 04/15/18 Time of Evaluation: 09:40 Objective - Vital Signs/Intake and Output Vital Signs (last 24 hours): Temp Pulse Resp BP Pulse Ox 97.4 F L 98 H 18 100/68 95 04/15/18 07:00 04/15/18 07:55 04/15/18 07:00 04/15/18 07:00 04/15/18 07:00 Intake and Output: 04/15/18 04/15/18 06:59 18:59 Intake Total 340 Balance 340 - Medications Medications: Current Medications Acetaminophen (Tylenol 325mg Tab) 650 mg PO Q6 PRN PRN Reason: Pain, moderate (4-7) Acetaminophen (Tylenol 325mg Tab) 650 mg PO Q6 PRN PRN Reason: Fever >100.4 F Albuterol/Ipratropium (Duoneb 3 Mg/0.5 Mg (3 Ml) Ud) 3 ml INH RQ6 PRN PRN Reason: Shortness of Breath Last Admin: 04/14/18 12:46 Dose: 3 ml Chlordiazepoxide (Librium) 25 mg PO TID JONI PRN Reason: Taper Stop: 04/17/18 17:59 Last Admin: 04/15/18 10:06 Dose: 25 mg Ceftriaxone Sodium 1 gm/ (Sodium Chloride) 100 mls @ 100 mls/hr IVPB Q12H JONI PRN Reason: Protocol Last Admin: 04/15/18 06:53 Dose: 100 mls/hr Azithromycin 500 mg/ Sodium (Chloride) 250 mls @ 250 mls/hr IVPB Q24H JONI PRN Reason: Protocol Last Admin: 04/14/18 17:24 Dose: 250 mls/hr Lactobacillus Acidophilus (Bacid Acidophilus) 1 cap PO BID JONI Last Admin: 04/15/18 10:51 Dose: 1 cap Lorazepam (Ativan) 1 mg IVP Q15MIN PRN PRN Reason: Anxiety Methylprednisolone (Solu-Medrol) 40 mg IVP Q6 JONI Ondansetron HCl (Zofran Inj) 4 mg IVP Q6 PRN PRN Reason: Nausea/Vomiting Pantoprazole Sodium (Protonix Ec Tab) 40 mg PO DAILY [facility] Last Admin: 04/15/18 10:06 Dose: 40 mg Fluticasone/Salmeterol (Advair Diskus 250/50) 1 puff INH RQ12 JONI Last Admin: 04/15/18 08:11 Dose: 1 puff Tiotropium [place] (Spiriva) 18 mcg INH RQ24 JONI Last Admin: 04/15/18 08:11 Dose: 18 mcg - Labs Labs: 04/15/18 06:36 04/15/18 06:36 <Juan Singh - Last Filed: 04/15/18 16:59> Subjective - Subjective Subjective: Please see below Objective - Vital Signs/Intake and Output Vital Signs (last 24 hours): Temp Pulse Resp BP Pulse Ox 97.5 F L 94 H 18 116/73 95 04/15/18 15:16 04/15/18 15:16 04/15/18 15:16 04/15/18 15:16 04/15/18 15:16 Intake and Output: 04/15/18 04/15/18 06:59 18:59 Intake Total 340 Balance 340 - Medications Medications: Current Medications Acetaminophen (Tylenol 325mg Tab) 650 mg PO Q6 PRN PRN Reason: Pain, moderate (4-7) Acetaminophen (Tylenol 325mg Tab) 650 mg PO Q6 PRN PRN Reason: Fever >100.4 F Albuterol/Ipratropium (Duoneb 3 Mg/0.5 Mg (3 Ml) Ud) 3 ml INH RQ6 PRN PRN Reason: Shortness of Breath Last Admin: 04/14/18 12:46 Dose: 3 ml Chlordiazepoxide (Librium) 25 mg PO TID JONI PRN Reason: Taper Stop: 04/17/18 17:59 Last Admin: 04/15/18 14:46 Dose: 25 mg Ceftriaxone Sodium 1 gm/ (Sodium Chloride) 100 mls @ 100 mls/hr IVPB Q12H JONI PRN Reason: Protocol Last Admin: 04/15/18 06:53 Dose: 100 mls/hr Azithromycin 500 mg/ Sodium (Chloride) 250 mls @ 250 mls/hr IVPB Q24H JONI PRN Reason: Protocol Last Admin: 04/14/18 17:24 Dose: 250 mls/hr Lactobacillus Acidophilus (Bacid Acidophilus) 1 cap PO BID [facility] Last Admin: 04/15/18 10:51 Dose: 1 cap Lorazepam (Ativan) 1 mg IVP Q15MIN PRN PRN Reason: Anxiety Methylprednisolone (Solu-Medrol) 40 mg IVP Q6 [facility] Last Admin: 04/15/18 12:46 Dose: 40 mg Ondansetron HCl (Zofran Inj) 4 mg IVP Q6 PRN PRN Reason: Nausea/Vomiting Pantoprazole Sodium (Protonix Ec Tab) 40 mg PO DAILY [facility] Last Admin: 04/15/18 10:06 Dose: 40 mg Fluticasone/Salmeterol (Advair Diskus 250/50) 1 puff INH RQ12 [facility] Last Admin: 04/15/18 08:11 Dose: 1 puff Tiotropium [place] (Spiriva) 18 mcg INH RQ24 [facility] Last Admin: 04/15/18 08:11 Dose: 18 mcg Trimethoprim/Sulfamethoxazole (Bactrim Ds Tab) 1 tab PO Q12H JONI PRN Reason: Protocol Last Admin: 04/15/18 15:07 Dose: 1 tab - Labs Labs: 04/15/18 06:36 04/15/18 06:36 Attending/Attestation - Attestation I have personally seen and examined this patient.: Yes I have fully participated in the care of the patient.: Yes I have reviewed all pertinent clinical information, including history, physical exam and plan: Yes Notes (Text): 04/15/18 16:37 Patient was seen and examined at 11:15 AM 04/15/18 BED 656 B This is the first time I am seeing this patient. Please see below for his Assessment and Plans. Upon FULL ROS: Moving his bowels and there were soft NO chest pain NO palpitations NO SOB/Cough/Wheezing NO Abdominal pain NO n/v/d/c NO paresthesias Feels like he has no tremors (he actually has them in his hands) NO complaints of auditory or visual hallucinations NO headaches NO new changes in vision NO new changes in hearing NO edema NO dysphagia/odynophagia Exam: General: AAOX3, NAD HEENT: NCA, EOMI, PERRLA, NO cervical/supraclavicular/submandibular lymphadenopathy, NO pharyngeal erythema/exudate, Nasal Turbinates are nonerythematous/nonedematous, Oral Mucosa is moist Cardio: NS1 and NS2, NO M/R/G Resp: Bilateral middle to lower lung field inspiratory crackles GI: BSx4, Soft, NT, NO HSM, NO guarding/rebound tenderness Ext: Pulses are strong and equal, Capillary Refill is 2 seconds, NO edema Neuro: CN II through XII are grossly intact, Slightly tremulous hands bilaterally Assessments: 1). COPD Exacerbation with possible Pneumonia CT Chest done in ER 03/25/18 showed moderate to severe emphysema, moderate to severe diffuse bronchiectasis, 3.4 x 2 cm consolidation at the right middle lobe may represent a pneumonia vs neoplasm From ER on 03/25/18 sent home on Azithromycin and Prednisone Chest X Ray done this admission 04/13/18 showed NO definite interval pathology, prior opacity in the right mid to lower lung zone less dense and less conspicuous Avair 250/50 mcg 1 puff INH Q12H Spiriva 18 mcg 2 PO INH Q24H Solumedrol 40 mg IV Q6H and start to taper this down on 04/16/18 to Q8H Duoneb Q6H PRN SOB Azithromycin 500 mg IV Q24H Ceftriaxone 1 gm IV Q12H If he continues to improve consider discharge on Doxcycline 100 mg PO 2x/day with last dose on 04/20/18 and Prednisone Taper over 5 days ([id number]) He will need outpatient Pulmonology follow up with his PMD at [facility] in [place] [id number] with repeat Chest X Ray in 6 weeks 2). Alcohol Withdrawl Hands were tremulous at the time of my exam Librium Taper will be completed on 04/16/18 3). Hx HIV Patient is unable to provide information regarding his last blood work which he stated he had done at [facility] in [place] [address] roughly one month ago where his PMD there follows him for his HIV as well as coordination of the rest of his medical care. Attempt made after exam today to call PMD at the number provided by patient, however the office was closed Patient's Sister whom patient called provided information that patient is being treated with GENVOYA (which is not carried by [facility]): Nurse Donald to notify Sister to bring this in for patient Also noted from Sister information that patient is on PCP prophylaxis with Bactrim 1 tab PO 2x/day and these have been ordered 4). Hepatitis C Hepatitis C Ab was REACTIVE Patient revealed at the time of admission that he was NOT treated He will have to follow up with GI through his PMD at [facility] for further treatment 5). Prophylaxis Tylenol 650 mg PO Q6H PRN fever Zofran 4 mg IV Q6H PRN N/V Protonix 40 mg PO 1x/day Lactobacillus 1 cap PO 2x/day Bilateral SCDs Juan Singh D.O.
[2018-04-15] MEDS: Tmp-Smz 800 mg-160 mg DS Tab PO SCH (15:07)
[2018-04-15] MEDS: Azithromycin 500 MG in Sodium Chloride 0.9% 250 ML IVPB SCH (17:34)
[2018-04-16] MEDS: MethylPREDNISolone 40 mg Vial IVP SCH ×4 (00:49→16:28)
[2018-04-16] MEDS: Tmp-Smz 800 mg-160 mg DS Tab PO SCH ×2 (02:49→13:53)
[2018-04-16] MEDS: Tiotropium 18 mcg Cap For Inhalation INH SCH (08:07)
[2018-04-16] MEDS: Fluticasone-Salmeterol 250-50mcg Diskus INH SCH (08:07)
[2018-04-16 08:45] LABS: BASO % 0.1 % (0.0-2.0); HEMOGLOBIN 16.4 g/dL (12.0-18.0); LYMPH # 0.3 K/uL (1.0-4.3); LYMPH % 3.5 % (20.0-40.0); MEAN CELL VOLUME 105.5 fL (80.0-94.0); MEAN CORPUSCULAR HEMOGLOBIN 35.7 pg (27.0-31.0); MEAN CORPUSCULAR HGB CONC 33.8 g/dL (33.0-37.0); MEAN PLATELET VOLUME 8.9 fL (7.2-11.7); MONO # 0.3 K/uL (0.0-0.8); MONO % 4.5 % (0.0-10.0); NEUT # 7.1 K/uL (1.8-7.0); NEUT % 91.9 % (50.0-75.0); NRBC % 0.1 % (0.0-2.0); PLATELET COUNT 196 K/uL (130-400); RED CELL DISTRIBUTION WIDTH 17.9 % (11.5-14.5); WHITE BLOOD COUNT 7.7 K/uL (4.8-10.8)
[2018-04-16 08:51] LABS: ALB/GLOB RATIO 1.3 (1.0-2.1); ALBUMIN 4.2 g/dL (3.5-5.0); ALT/SGPT 40 U/L (21-72); AST/SGOT 26 U/L (17-59); BLOOD UREA NITROGEN 14 mg/dL (9-20); CALCIUM 9.5 mg/dl (8.6-10.4); GFR AFRICAN-AMERICAN > 60; GFR NON-AFRICAN AMERICAN > 60
[2018-04-16 08:59] VITALS: RESP 20
[2018-04-16 09:57] LABS: BANDS 2 % (0-2); LYMPHOCYTE 4 % (20-40); MONOCYTE 4 % (0-10); NEUTROPHIL 90 % (50-75); PLATELET ESTIMATE NORMAL (NORMAL); TOTAL CELLS COUNTED 100
[2018-04-16 09:58] LABS: ANISOCYTOSIS SLIGHT
[2018-04-16 09:59] LABS: HYPOCHROMIC SLIGHT; LARGE PLATELETS PRESENT; POLYCHROMIC SLIGHT; TOXIC GRANULATION PRESENT
[2018-04-16] MEDS: Pantoprazole 40 mg EC Tab PO SCH (10:25)
[2018-04-16] MEDS: Lactobacillus Acidophilus 500 MU Cap PO SCH (10:25)
--- NOTE | 2018-04-16 12:02 | RAD ---
Chest x-ray single frontal view History: COPD. History of HIV. Possible consolidation. Comparison: 04/13/2018 Findings: Persistent patchy linear increased markings at the left lung base which may represent some mild atelectasis and or subtle infiltrate. Additional linear increased markings within the right mid and lower lung zones which may also represent atelectasis and or subtle infiltrate. Clinical correlation. Diffuse increased interstitial lung markings. Left hilar prominence. Hyperinflation suggestive for COPD and or emphysematous changes. Impression: Persistent patchy linear increased markings at the left lung base which may represent some mild atelectasis and or subtle infiltrate. Additional linear increased markings within the right mid and lower lung zones which may also represent atelectasis and or subtle infiltrate. Clinical correlation. Diffuse increased interstitial lung markings. Left hilar prominence. Hyperinflation suggestive for COPD and or emphysematous changes.
[2018-04-16 16:28] VITALS: BP 126/84; PULSE 83; TEMP 97.5; O2SAT 94
[2018-04-16] MEDS: Azithromycin 500 MG in Sodium Chloride 0.9% 250 ML IVPB SCH (16:28)
--- NOTE | 2018-04-16 17:25 | CP.PCM.DIS ---
Provider - Provider Date of Admission: 04/13/18 14:27 Attending physician: Adrián Rodriguez DO Primary care physician: MOO Sloan at [facility] at [place] Consults: Dr. Sarmiento Time Spent in preparation of Discharge (in minutes): 40 Diagnosis - Discharge Diagnosis (1) COPD with exacerbation Status: Acute Comment: Patient given solumedrol 40 IVP q6h, and to finish prednisone taper on discharge. Patient to continue Bactrim DS for PCP prophylaxis. (2) Alcohol withdrawal Status: Acute Comment: Patient completed Librium taper while inpatient. Hospital Course - Lab Results Lab Results: Most Recent Lab Values WBC 7.7 K/uL (4.8-10.8) 04/16/18 08:21 RBC 4.60 Mil/uL (4.40-5.90) 04/16/18 08:21 Hgb 16.4 g/dL (12.0-18.0) 04/16/18 08:21 Hct 48.5 % (35.0-51.0) 04/16/18 08:21 MCV 105.5 fL (80.0-94.0) H 04/16/18 08:21 MCH 35.7 pg (27.0-31.0) H 04/16/18 08:21 MCHC 33.8 g/dL (33.0-37.0) 04/16/18 08:21 RDW 17.9 % (11.5-14.5) H 04/16/18 08:21 Plt Count 196 K/uL (130-400) 04/16/18 08:21 MPV 8.9 fL (7.2-11.7) 04/16/18 08:21 Neut % (Auto) 91.9 % (50.0-75.0) H 04/16/18 08:21 Lymph % (Auto) 3.5 % (20.0-40.0) L 04/16/18 08:21 [place] % (Auto) 4.5 % (0.0-10.0) 04/16/18 08:21 Eos % (Auto) 0.0 % (0.0-4.0) 04/16/18 08:21 Baso % (Auto) 0.1 % (0.0-2.0) 04/16/18 08:21 Neut # (Auto) 7.1 K/uL (1.8-7.0) H 04/16/18 08:21 Lymph # (Auto) 0.3 K/uL (1.0-4.3) L 04/16/18 08:21 [place] # (Auto) 0.3 K/uL (0.0-0.8) 04/16/18 08:21 Eos # (Auto) 0.0 K/uL (0.0-0.7) 04/16/18 08:21 Baso # (Auto) 0.0 K/uL (0.0-0.2) 04/16/18 08:21 Neutrophils % (Manual) 90 % (50-75) H 04/16/18 08:21 Band Neutrophils % 2 % (0-2) 04/16/18 08:21 Lymphocytes % (Manual) 4 % (20-40) L 04/16/18 08:21 Monocytes % (Manual) 4 % (0-10) 04/16/18 08:21 Differential Comment 04/13/18 10:51 Toxic Granulation Present 04/16/18 08:21 Platelet Estimate Normal (NORMAL) 04/16/18 08:21 Large Platelets Present 04/16/18 08:21 Polychromasia Slight 04/16/18 08:21 Hypochromasia (manual) Slight 04/16/18 08:21 Anisocytosis (manual) Slight 04/16/18 08:21 Sodium 139 mmol/L (132-148) 04/16/18 08:21 Potassium 4.4 mmol/L (3.6-5.2) 04/16/18 08:21 Chloride 97 mmol/L (98-107) L 04/16/18 08:21 Carbon Dioxide 35 mmol/L (22-30) H 04/16/18 08:21 Anion Gap 11 (10-20) 04/16/18 08:21 BUN 14 mg/dL (9-20) 04/16/18 08:21 Creatinine 0.7 mg/dL (0.8-1.5) L 04/16/18 08:21 Est GFR ( Amer) > 60 04/16/18 08:21 Est GFR (Non-Af Amer) > 60 04/16/18 08:21 Random Glucose 147 mg/dL (75-110) H 04/16/18 08:21 Calcium 9.5 mg/dl (8.6-10.4) 04/16/18 08:21 Phosphorus 2.7 mg/dL (2.5-4.5) 04/16/18 08:21 Magnesium 2.1 mg/dL (1.6-2.3) 04/16/18 08:21 Total Bilirubin 0.5 mg/dL (0.2-1.3) 04/16/18 08:21 AST 26 U/L (17-59) 04/16/18 08:21 ALT 40 U/L (21-72) 04/16/18 08:21 Alkaline Phosphatase 82 U/L (38-126) 04/16/18 08:21 Total Protein 7.4 g/dL (6.3-8.3) 04/16/18 08:21 Albumin 4.2 g/dL (3.5-5.0) 04/16/18 08:21 Globulin 3.2 gm/dL (2.2-3.9) 04/16/18 08:21 Albumin/Globulin Ratio 1.3 (1.0-2.1) 04/16/18 08:21 Vitamin B12 620 pg/mL (239-931) 04/14/18 06:08 Folate 11.7 ng/mL 04/14/18 06:08 Urine Color Yellow (YELLOW) 04/13/18 13:36 Urine Clarity Clear (Clear) 04/13/18 13:36 Urine pH 5.0 (5.0-8.0) 04/13/18 13:36 Ur Specific [place] 1.014 (1.003-1.030) 04/13/18 13:36 Urine Protein Negative mg/dL (NEGATIVE) 04/13/18 13:36 Urine Glucose (UA) Normal mg/dL (Normal) 04/13/18 13:36 Urine Ketones Negative mg/dL (NEGATIVE) 04/13/18 13:36 Urine Blood Negative (NEGATIVE) 04/13/18 13:36 Urine Nitrate Negative (NEGATIVE) 04/13/18 13:36 Urine Bilirubin Negative (NEGATIVE) 04/13/18 13:36 Urine Urobilinogen Normal mg/dL (0.2-1.0) 04/13/18 13:36 Ur Leukocyte Esterase Neg [place]/uL (Negative) 04/13/18 13:36 Urine WBC (Auto) 1 /hpf (0-5) 04/13/18 13:36 Urine RBC (Auto) < 1 /hpf (0-3) 04/13/18 13:36 Ur Squamous Epith Cells 5 /hpf (0-5) 04/13/18 13:36 Urine Opiates Screen Negative (NEGATIVE) 04/13/18 13:36 Urine Methadone Screen Negative (NEGATIVE) 04/13/18 13:36 Ur Barbiturates Screen Negative (NEGATIVE) 04/13/18 13:36 Ur Phencyclidine Scrn Negative (NEGATIVE) 04/13/18 13:36 Ur Amphetamines Screen Negative (NEGATIVE) 04/13/18 13:36 U Benzodiazepines Scrn Negative (NEGATIVE) 04/13/18 13:36 U Oth Cocaine Metabols Negative (NEGATIVE) 04/13/18 13:36 U Cannabinoids Screen Negative (NEGATIVE) 04/13/18 13:36 Alcohol, Quantitative < 10 mg/dl (0-10) 04/13/18 10:51 Hepatitis A IgM Ab Negative (NEGATIVE) 04/14/18 06:08 Hep Bs Antigen Negative (NEGATIVE) 04/14/18 06:08 Hep B Core IgM Ab Negative (NEGATIVE) 04/14/18 06:08 Hepatitis C Antibody Reactive (NEGATIVE) 04/14/18 06:08 H.influenzae Type B Ag Negative (NEGATIVE) 04/14/18 07:10 Ur L.pneumophila Ag Negative (NEGATIVE) 04/13/18 20:40 Mycoplasma pneumon IgM Negative (NEGATIVE) 04/13/18 20:40 N.meningitidis ACY/W135 Negative (NEGATIVE) 04/14/18 07:10 N.meningi B/E.coli K1 Ag Negative (NEGATIVE) 04/14/18 07:10 Group B Strep Antigen Negative (NEGATIVE) 04/14/18 07:10 S. pneumoniae Antigen Negative (NEGATIVE) 04/14/18 07:10 - Hospital Course Hospital Course: On Admission: This is a 58 year old gentleman with a pmhx of COPD, HIV, Hep C (untreated), and alcohol abuse presenting with acutely worsening shortness of breath. He is a patient of José Sloan, who sent the patient in for labs. He presented at [facility] today to have labs done and was directed to come to the ED because he was short of breath. The patient states that he is "always" short of breath and this is not new for him. He was recently diagnosed with PNA and given azithromycin/prednisone from [facility] [place]. He states that he finished these and went to his PCP, who placed him on Augmentin/prednisone which he is still taking at home. He denies any fever or chills. He has a minor, lingering cough that was productive weeks ago but is now dry. During hospitalization: Patient was evaluated on admission for dyspnea and alcohol withdrawal. Patient was seen by psychiatrist Dr. Sarmiento for alcohol withdrawal. Patient was placed on librium taper. Patient's alcohol withdrawal symptoms improved throughout hospitalization. On day of discharge patient was ambulating well and did not have any tremor. Patient was monitored on telemetry. Patient had one episode of vtach during hospitalization. Patient's electrolytes were monitored and repleted and telemetry review did not show further episodes. Patient was placed on solumedrol IVP for COPD exacerbation. Patient was also placed on Bactrim for PCP prophylaxis. Patient is to follow up with his PMD for results of lymphocyte subset panel and further management of his HIV. Patient was also informed about Hepatitis C positive status and is to follow up with his PMD for further care. CXR: Persistent patchy linear increased markings at the left lung base which may represent some mild atelectasis and or subtle infiltrate. Additional linear increased markings within the right mid and lower lung zones which may also represent atelectasis and or subtle infiltrate. Clinical correlation. Diffuse increased interstitial lung markings. Left hilar prominence. Hyperinflation suggestive for COPD and or emphysematous changes. On Discharge: Patient is stable for discharge home as per Dr. Rodriguez. Patient is to follow up with his PMD at [facility] within one week of discharge. Patient is to take the following medications on discharge: bactrim DS one tablet twice a day for 7 days, breo ellipta one inhalation daily, spiriva one inhalation daily, prednisone taper: 20mg by mouth twice a day for three days, followed by 20mg tablet once a day for three days, then taper is finished. Patient is to return to ER if symptoms reoccur or worsen. This was explained to the patient who understands and agrees. Discharge Exam - Head Exam Head Exam: ATRAUMATIC, NORMAL INSPECTION - Eye Exam Eye Exam: EOMI - ENT Exam ENT Exam: Mucous Membranes Moist - Respiratory Exam Respiratory Exam: Decreased Breath Sounds, NORMAL BREATHING PATTERN. absent: Wheezes, Respiratory Distress - Cardiovascular Exam Cardiovascular Exam: +S1, +S2. absent: Tachycardia, Systolic Murmur - GI/Abdominal Exam GI & Abdominal Exam: Normal Bowel Sounds, Soft. absent: Tenderness - Extremities Exam Extremities exam: normal inspection - Neurological Exam Neurological exam: Alert - Psychiatric Exam Psychiatric exam: Normal Affect - Skin Skin Exam: Warm Discharge Plan - Discharge Medications Prescriptions: Fluticasone/Vilanterol [Breo Ellipta 100-25 Mcg INH] 1 each IH DAILY #1 blst.w.dev Prednisone [Deltasone] 20 mg PO DAILY #9 tablet Sulfamethoxazole/Trimethoprim [Bactrim DS Tab] 1 tab PO Q12H #14 tab Tiotropium [Spiriva] 18 mcg INH RQ24 #30 cap Tiotropium [place] Inhaler [Spiriva Inhalation Handihaler Device] 1 inhaler INH ONCE #1 inhaler - Follow Up Plan Condition: STABLE Disposition: HOME/ ROUTINE Instructions: Alcohol Withdrawal, Exacerbation of COPD (DC), Alcohol Abuse and Alcoholism (DC) Additional Instructions: Patient is stable for discharge home as per Dr. Rodriguez. Patient is to follow up with his PMD at [facility] within one week of discharge. Patient is to take the following medications on discharge: bactrim DS one tablet twice a day for 7 days, breo ellipta one inhalation daily, spiriva one inhalation daily, prednisone taper: 20mg by mouth twice a day for three days, followed by 20mg tablet once a day for three days, then taper is finished. Patient is to return to ER if symptoms reoccur or worsen. This was explained to the patient who understands and agrees.
== END 2018-04-16 18:21 | disposition home or self-care (01) | DRG 191 ==
LOC: C.ER 10:12 → C.9E 14:27 → C.6T 15:50
PROVIDERS: ADMIT Hospitalist; ATTEND Hospitalist
PROC: HZ2ZZZZ Detoxification Services for Substance Abuse Treatment (ICD-10-PCS; principal; 2018-04-13)
PROC: HZ52ZZZ Individual Psychotherapy for Substance Abuse Treatment, Cognitive-Behavioral (ICD-10-PCS; 2018-04-13)
PROC: HZ59ZZZ Individual Psychotherapy for Substance Abuse Treatment, Supportive (ICD-10-PCS; 2018-04-13)
PROC: HZ42ZZZ Group Counseling for Substance Abuse Treatment, Cognitive-Behavioral (ICD-10-PCS; 2018-04-13)
PROC: HZ46ZZZ Group Counseling for Substance Abuse Treatment, Psychoeducation (ICD-10-PCS; 2018-04-13)
PROC: GZHZZZZ Group Psychotherapy (ICD-10-PCS; 2018-04-13)
PROC: GZ58ZZZ Individual Psychotherapy, Cognitive-Behavioral (ICD-10-PCS; 2018-04-13)
PROC: GZ56ZZZ Individual Psychotherapy, Supportive (ICD-10-PCS; 2018-04-13)
PROC: HZ56ZZZ Individual Psychotherapy for Substance Abuse Treatment, Psychoeducation (ICD-10-PCS; 2018-04-13)
DX: J44.1 Chronic obstructive pulmonary disease with (acute) exacerbation (principal); I47.2 Ventricular tachycardia; F10.230 Alcohol dependence with withdrawal, uncomplicated; B19.20 Unspecified viral hepatitis C without hepatic coma; Z21 Asymptomatic human immunodeficiency virus [HIV] infection status; Y90.0 Blood alcohol level of less than 20 mg/100 ml; Z87.891 Personal history of nicotine dependence